=== PATIENT | female | born 1955 | race Caucasian/White ===

== ENCOUNTER 2021-07-03 09:35 | Outpatient (REF) | payer MEDICARE, MEDICAID, SELFPAY ==
--- NOTE | 2021-07-09 10:57 | MHC.AU.ANO ---
Adult Audiological Evaluation Date of Visit: 07/03/21 Reason for Appointment: Patient has been experiencing significant difficulty hearing family and friends. Patient has a history of throat cancer and had an audiological evaluation at her ENT's office as a baseline prior to starting treatment. Patient reports that the test revealed she had some hearing loss. Her treatment team decided to give her a different chemotherapy agent than they were originally considering with the hope of preventing further hearing loss. She also received radiation. Patient reports that after the radiation, she feels her hearing became much worse. Does patient feel they have a hearing loss?: Yes If Yes, Which Ear?: Both Ears Has hearing been tested previously?: Yes Previous Hearing Test Results: In 2019 at her ENT's office, as a baseline before throat cancer treatment. Results were not available for review. Hearing Handicap Inventory: HHIE SCORE: 34 Based on HHIE score, patient has: Severe perceived hearing handicap Ear History: Recent Ear Drainage: None Reported Family History of Hearing Loss?: Yes: Father Recent Ear Infections: None Reported Ear Infections in Childhood: None Reported History of Ear Wax Buildup: None Reported Previous Ear Surgery: None Reported Bothersome Tinnitus/Ringing/Noises in Ears: None Reported Ear used on the phone: Left Ear Blocked/Full Sensation in Ear(s): Both Ears History of occupational noise exposure?: No History: No Medical History: Medical History: Throat Cancer in 2019 (treated with chemotherapy and radiation), Hypertension, Thyroid Disease Medication List: Lisinopril, Citalopram, Levothyroxine, Baby Aspirin, Iron Otoscopy: Right Ear: Unremarkable Left Ear: Unremarkable Tympanometry: Tympanometry performed due to: To assess integrity of the middle ear system Right Ear: Non-compliant Middle Ear System (Type B) Left Ear: Non-compliant Middle Ear System (Type B) Hearing Evaluation: Transducer(s) Used: Insert Earphones Method: Conventional Audiometry Stimuli Used: Pure Tones Right Ear: Description of Hearing: Moderately-severe mixed hearing loss (mostly sensorineural, slight conductive component) Left Ear: Description of Hearing: Moderate to moderately-severe sensorineural hearing loss Speech Recognition Threshold (SRT): Method Used: Recorded Lists Stimuli Used: Spondee Words Right Ear: 60 dBHL Left Ear: 50 dBHL Word Discrimination: Method: Recorded Lists Word Lists Used: W-22 Right Ear: 76% at 80 dBHL Left Ear: 84% at 75 dBHL Most Comfortable Level (MCL): Right Ear: 80 dBHL Left Ear: 75 dBHL Recommendations: Audiological re-evaluation in one year. Follow-up with ENT is recommended to discuss non-compliant middle ear systems and asymmetrical hearing loss. See Hearing Aid Evaluation report for more information. Diagnosis: Primary Diagnosis: H90.3 Bilateral Sensorineural Hearing Loss Signature: Provider: Carlos Phillips, CCC-A
--- NOTE | 2021-07-09 10:59 | MHC.AU.MED ---
Medical Clearance for Hearing Instrumentation Date: 07/09/21 Patient Name: Johanna Josue Date of : 1955 Referring Provider: Nia Sow NP We have seen your patient on 07/03/21 and have determined that they are a candidate for amplification (See accompanying report). Specifically, they would benefit from: Hearing aid use in both ears There is a statute that addresses Medical Evaluation Requirements prior to fitting a patient with a hearing aid. According to [place] statute 265 CMR:6.03(1), (a) General. Except as provided in 265 CMR 6.03(1)(b), a eye glass frame polisher shall not sell a hearing aid unless the prospective user has presented to the eye glass frame polisher a written statement signed by a licensed physician that states that the patient's hearing loss has been medically evaluated and the patient may be considered a candidate for a hearing aid. The medical evaluation must have taken place within the preceding six months. Please note: Due to the [place] Statute referenced above, we cannot accept a signature other than that of a licensed physician. ROLL DOUGH DIVIDER and PA signatures cannot be accepted. I am in agreement with the above recommendation. There is no medical contraindication for hearing instrumentation. Physician Signature Date Physician Name (Printed)
--- NOTE | 2021-07-09 10:59 | MHC.AU.HAS ---
Hearing Aid Evaluation Date of Visit: 07/03/21 Historical Information: Description of Hearing: Moderate/moderately-severe sensorineural hearing loss bilaterally (slightly worse in the right ear) Summary: Patient was seen for audiological evaluation (see separate report for details). Patient has been experiencing significant hearing difficulty in her daily life. She feels she is ready for hearing aids. Options were discussed. Hearing Aid Prescription: Based on the individual?s shared listening needs, communication environments, dexterity, desire for connectivity, and personal preferences, the following prescription for amplification has been made: Right ear: Spool Cleaner: Phonak Model: Audeo P70-R Battery Size: Rechargeable Color: P4 [place] Senior Structural Engineer: 1M Type of Mold: SlimTip Silicone Left ear: Spool Cleaner: Phonak Model: Audeo P70-R Battery Size: Rechargeable Color: P4 [place] Senior Structural Engineer: 1M Type of Mold: SlimTip Silicone Action Taken/Action Needed: Earmold Impressions Taken Medical Clearance to be requested from PCP/ENT Hearing Instrument Fitting to be scheduled when materials arrive Primary Diagnosis: H90.3 Bilateral Sensorineural Hearing Loss Signature: Provider: Carlos Phillips, CCC-A
== END 2021-07-03 09:36 | disposition home or self-care (01) ==
LOC: HO.SH 09:35
PROVIDERS: Visit Provider Nurse Practitioner Primary Care
DX: Z01.118 Encounter for examination of ears and hearing with other abnormal findings (principal); Z46.1 Encounter for fitting and adjustment of hearing aid; H90.3 Sensorineural hearing loss, bilateral
CPT/HCPCS: 92557; 92567; 92591; V5275

== ENCOUNTER 2021-07-31 10:33 | Outpatient (REF) | payer MEDICARE, MEDICAID, SELFPAY ==
--- NOTE | 2021-07-31 11:51 | MHC.AU.HFA ---
Hearing Instrument Fitting- Adult- Binaural Date of Visit: 07/31/21 Hearing Instruments Dispensed: Right Ear: District Court Bailiff: Phonak Model: Audeo P70-R Serial Number: [id number] Repair Warranty: 10/15/2024 Loss and Damage Warranty: 10/15/2024 Service Plan: 07/31/2022 Battery Size: Rechargeable Color: P4 [place] Shiftman: 1M Type of Mold: SlimTip Silicone #[id number] Warranty 11/16/2021 Type of Wax Guard: CeruShield Left Ear: [address] Bailiff: Phonak Model: Audeo P70-R Serial Number: [id number] Repair Warranty: 10/15/2024 Loss and Damage Warranty: 10/15/2024 Service Plan: 07/31/2022 Battery Size: Rechargeable Color: P4 [place] Shiftman: 1M Type of Mold: SlimTip Silicone #[id number] Warranty 11/16/2021 Type of Wax Guard: CeruShield Summary of Fitting: Feedback manager utility run. Verifit performed and levels adjusted to better reach targets. Patient felt 100% target was too loud- lowered to 90%. Patient was pleased with the sound and fit of the instruments. Hearing aid care and maintenance were discussed and practiced. Patient does not want the hearing aids paired to her phone at this time, as she rarely uses her phone. Recommendations: Recommendations: A hearing instrument follow-up was scheduled. Diagnosis Code(s): Primary Diagnosis: H90.3 Bilateral Sensorineural Hearing Loss Signature: Provider: Carlos Phillips, BETITO-A
== END 2021-07-31 10:34 | disposition home or self-care (01) ==
LOC: HO.HAP 10:33
PROVIDERS: Visit Provider Family Medicine
DX: Z46.1 Encounter for fitting and adjustment of hearing aid (principal); H90.3 Sensorineural hearing loss, bilateral
CPT/HCPCS: V5011; V5020; V5160; V5261; V5264

== ENCOUNTER 2021-08-14 10:37 | Outpatient (REF) | payer MEDICARE, MEDICAID, SELFPAY | END 2021-08-14 10:38 | disposition home or self-care (01) | LOC: HO.HAP 10:37 | PROVIDERS: Visit Provider Nurse Practitioner Primary Care | DX: Z13.89 Encounter for screening for other disorder (principal) ==

== ENCOUNTER 2023-03-31 08:43 | Outpatient (REF) | payer MEDICARE, OTHER, SELFPAY ==
--- NOTE | 2023-03-31 10:14 | MHC.AU.HA3 ---
Hearing Instrument Follow-Up- Binaural Date of Visit: 03/31/23 Right Ear: Albert, Model, Color, Serial Number: Sunita Erickson P70-R SN: [id number] Color: [place] Telephone Operator Repair Warranty: 10/15/2024 Telephone Operator Loss and Damage Warranty: 10/15/2024 [facility] Service Plan: 07/31/2022 Battery Size: Rechargeable Lead Custodian/Slim Tube: 1M [place]/Dome/CShell/SlimTip:SlimTip Silicone SN: [id number] Warranty: 11/16/2021 Type of Wax Guard: CeruShield Dispensed By: [facility] Date of Fittin07/31/2021 Left Ear: Albert, Model, Color, Serial Number: Sunita Erickson P70-R SN: [id number] Color: [place] Telephone Operator Repair Warranty: 10/15/2024 Telephone Operator Loss and Damage Warranty: 10/15/2024 [facility] Service Plan: 07/31/2022 Battery Size: Rechargeable Lead Custodian/Slim Tube: 1M [place]old/Dome/CShell/SlimTip: SlimTip Silicone SN: [id number] Warranty 11/16/2021 Type of Wax Guard: CeruShield Dispensed By: [facility] Date of Fittin07/31/2021 Follow-Up Summary: Johanna returned for routine hearing aid maintenance following updated hearing test. Cleaned both hearing aids and ear molds. Vacuumed microphones and ran through dehumidifier. Replaced wax guards. Did not make programming changes as hearing is stable and Johanna is happy with current sound quality. Johanna's insurance has change to [place] [employer] which does not cover hearing aid services. Discussed future visits incurring fee as [facility] Service Agreement 07/31/2022. Johanna was reportedly unaware that her insurance changed. She is planning to contact [employer] to try to change it back to her original [place] [employer] plan. No charge today as courtesy; however, she understands if she has this insurance at future visits, she will be responsible for cost. Recommendations: Hearing instrument follow-up or maintenance as needed. Please contact our clinic with any questions or concerns. Diagnosis Code(s): Primary Diagnosis: H90.A22 SNHL, Unilatearl, Left Ear, W/Restricted Contralateral Hearing Secondary Diagnosis: H90.A31 Mixed HL, Unilateral Right Ear, W/Restricted Contralateral Signature: Provider: Amanda Palmer, [facility]
== END 2023-03-31 08:44 | disposition home or self-care (01) ==
LOC: HO.SH 08:43
PROVIDERS: Visit Provider Nurse Practitioner Primary Care
DX: Z01.118 Encounter for examination of ears and hearing with other abnormal findings (principal); H90.A22 Sensorineural hearing loss, unilateral, left ear, with restricted hearing on the contralateral side; H90.A31 Mixed conductive and sensorineural hearing loss, unilateral, right ear with restricted hearing on the contralateral side
CPT/HCPCS: 92557; 92567